=== PATIENT | female | born 1965 | race Two or more races ===

== ENCOUNTER 2025-01-28 03:13 | Inpatient (IN) | payer SELFPAY ==
[~2025-01-28] VITALS: Ht 165.1 cm; Wt 95.0 kg
--- NOTE | 2025-01-28 04:06 | ED.PDOC ---
History of Present Illness HPI Comments 59 year old female presents to the ED with a chief complaint of abdominal pain onset 4 days. Patient states she began experiencing LT flank pain pain 4 days ago, this morning around 01:00, she began experiencing chills, nausea, diarrhea, back pain, noticed pain worsened, came to ED. Currently rates pain 01/08. Denies fever, vomiting, hematemesis,dysuria, hematuria, chest pain, shortness of breath, melena, blood in stool, dizziness, headache, blurred vision. No other symptoms or modifying factors present at this time. REVIEW OF SYSTEMS: General: chills. No fever, or fatigue HEENT: No sore throat, no earache, no congestion, no neck pain. Cardiac: No chest pain. No palpitations. Lungs: No shortness of breath, no cough. GI: nausea. LT flank pain. diarrhea. no vomiting. : No dysuria, frequency, or urgency. No hematuria. Musculoskeletal: back pain. no joint swelling, no extremity edema. Skin: No rash, no itching. Neuro: No headache, no dizziness, no weakness (And as sated in HPI) PHYSICAL EXAM: General: Awake, alert and oriented. No acute distress. Skin: Skin in warm, dry and intact. Appropriate color for ethnicity. HEENT: The head is normocephalic and atraumatic. Conjunctivae are clear without exudates or hemorrhage. Sclera is non-icteric. Eyelids are normal in appearance without swelling or lesions. Oral mucosa is pink and moist Neck: The neck is supple with normal range of motion. No JVD. Cardiac: Heart rate and rhythm are normal. No murmurs, gallops, or rubs are auscultated. Respiratory: No signs of respiratory distress. Lung sounds are clear in all lobes bilaterally without rales, rhonchi, or wheezes. Abdominal: LT flank tenderness. Extremities: Upper and lower extremities are atraumatic in appearance without deformity or edema. Neurological: The patient is awake, alert and oriented to person, place, and time with normal speech. Speech is clear. There is no facial asymmetry. Psychiatric: Appropriate mood and affect. Good judgement and insight. Chief Complaint: Abdominal Pain Time Seen by MD: 03:55 Reviewed Notes: Medications, Allergies Allergies: Coded Allergies: NO KNOWN ALLERGIES (Unverified , 01/28/25) Information Source: Patient, Spouse Mode of Arrival: Ambulatory Severity: Moderate Timing: Days Duration: Since onset Prehospital treatment: None Past Medical History PAST MEDICAL HISTORY: Denies Surgical History: Denies all surgeries CIRCUS PERFORMER History: No Pertinent CIRCUS PERFORMER History Family History Family History: Reviewed,noncontributory to illness, No family hx of Cancer, No family hx of DM, No family hx of Heart vinod, No family hx of HTN, No family hx ofKidney vinod, No family hx of Liver vinod, No family hx of Lung vinod, No family hx of Stroke Social History Smoker: Non-Smoker Alcohol: Denies ETOH Use Drugs: Denies Drug Use Lives In: Home Was a procedure done? Was a procedure done?: No X-Ray, Labs, Meds, VS Vital Signs Date Time Temp Pulse Resp B/P (MAP) Pulse Ox O2 Delivery O2 Flow Rate FiO2 01/28/25 03:15 97.6 60 18 134/83 97 97.6 Lab Test 01/28/25 04:15 Range/Units White Blood Count 7.1 4.4-10.8 10^3/uL Red Blood Count 5.57 H 4.0-5.20 10^6/uL Hemoglobin 15.0 12.2-16.2 g/dL Hematocrit 44.8 36.0-46.0 % Mean Corpuscular Volume 80.6 80.0-100.0 fL Mean Corpuscular Hemoglobin 27.0 L 28.0-32.0 pg Mean Corpuscular Hemoglobin Concent 33.4 32.0-36.0 g/dL Red Cell Distribution Width 14.7 H 11.8-14.3 % Platelet Count 297 140-450 10^3/uL Mean Platelet Volume 8.8 6.9-10.8 fL Neutrophils (%) (Auto) 47.1 37.0-80.0 % Lymphocytes (%) (Auto) 37.6 10.0-50.0 % Monocytes (%) (Auto) 9.7 0.0-12.0 % Eosinophils (%) (Auto) 4.0 0.0-7.0 % Basophils (%) (Auto) 1.6 0.0-2.0 % Neutrophils # (Auto) 3.3 1.6-8.6 10 ^3/uL Lymphocytes # (Auto) 2.7 0.4-5.4 10 ^3/uL Monocytes # (Auto) 0.7 0-1.3 10 ^3/uL Eosinophils # (Auto) 0.3 0-0.8 10 ^3/uL Basophils # (Auto) 0.1 0-0.2 10 ^3/uL Nucleated Red Blood Cells 0.1 % Sodium Level 141 136-145 mmol/L Potassium Level 4.0 3.5-5.1 mmol/L Chloride Level 106 98-107 mmol/L Carbon Dioxide Level 28 20-31 mmol/L Anion Gap 7 5-15 Blood Urea Nitrogen 9 9-23 mg/dL Creatinine 0.73 0.550-1.02 mg/dL Glomerular Filtration Rate Calc 95 >90 mL/min BUN/Creatinine Ratio 12.3 10.0-20.0 Serum Glucose 111 H 74-106 mg/dL Calcium Level 9.3 8.7-10.4 mg/dL Current Medications Medications (Trade) Dose Ordered Sig/Justa Route Start Time Stop Time Status Last Admin Ketorolac Tromethamine (Toradol Injection) 30 mg ONCE ONCE IM 01/28/25 04:15 01/28/25 04:16 DC 01/28/25 05:05 Acetaminophen (Tylenol Tablet) 650 mg ONCE ONCE PO 01/28/25 04:15 01/28/25 04:16 DC 01/28/25 05:04 Time of 1ST Reevaluation: 04:25 Reevaluation 1ST: Unchanged Patient Education/Counseling: Need For Follow Up Family Education/Counseling: Need For Follow Up SEPSIS Sepsis Screen Date sepsis recognized/suspect: Jan 28, 2025 Time Sepsis recognized/suspect: 318 Recent Procedure: No On Antibiotic Therapy: No Respiratory Rate >20: No Heart Rate >90: No Temp<36 C (96.8 F) or >38.3 C: No SBP <90 or MAP <65 mmHG: No New Acute Mental Status Change: No Is the patient on CPAP, BIPAP,: No Physician Orders Urinalysis (01/28/25 04:06) Ct Ab Pel Wo Con-No Oral Or Iv (01/28/25 04:06) Vital Signs Date Time Temp Pulse Resp B/P (MAP) Pulse Ox O2 Delivery O2 Flow Rate FiO2 01/28/25 03:15 97.6 60 18 134/83 97 97.6 Laboratory Tests Test 01/28/25 04:15 White Blood Count 7.1 10^3/uL (4.4-10.8) Medications Medications Dose Ordered Sig/Justa Route Start Time Stop Time Status Last Admin Dose Admin Acetaminophen 650 mg ONCE ONCE PO 01/28/25 04:15 01/28/25 04:16 DC 01/28/25 05:04 Ketorolac Tromethamine 30 mg ONCE ONCE IM 01/28/25 04:15 01/28/25 04:16 DC 01/28/25 05:05 Departure 1 Departure Time of Disposition: 05:34 Impression: Primary Impression: Abdominal pain Additional Impression: Hepatomegaly Disposition: ADMITTED INPATIENT Condition: Stable Comments Patient continues reporting 11/08 abdominal pain. Patient was offered admission for further treatment, observation and evaluation versus discharge home with outpatient follow up. Patient is concerned that she does not have a PCP at this time to follow up with, she has continued to be in severe pain. Patient admitted to hospitalist service for further treatment, evaluation and monitoring. Urinalysis pending. Critical Care Note Critical Care Time?: No Stability Stability form required: No Heart Score Heart Score: Heart Score Response (Comments) Value History N/A 0 EKG N/A 0 Age N/A 0 Risk Factors N/A 0 Troponin N/A 0 Total 0 I personally scribed for JOSELITO JOHNSON MD ([email or web address]) on 01/28/25 at 04:06. Electronically submitted by Olga Pederson ([email or web address]). JOSELITO JOHNSON MD Jan 28, 2025 04:06
[2025-01-28 04:45] LABS: Hematocrit 44.8 % (36.0-46.0); Hemoglobin 15.0 g/dL (12.2-16.2); Mean Corpuscular Hemoglobin 27.0 pg (28.0-32.0); Mean Corpuscular Volume 80.6 fL (80.0-100.0); Nucleated Red Blood Cells % 0.1 %
[2025-01-28 04:52] LABS: Chloride 106 mmol/L (98-107); Potassium 4.0 mmol/L (3.5-5.1); Sodium 141 mmol/L (136-145)
[2025-01-28 04:53] LABS: Anion Gap 7 (5-15); Calcium 9.3 mg/dL (8.7-10.4); Carbon Dioxide 28 mmol/L (20-31)
[2025-01-28 04:58] LABS: BUN/Creatinine Ratio 12.3 (10.0-20.0)
[2025-01-28] MEDS: ACETAMINOPHEN 325 MG TAB PO ONE (05:04)
[2025-01-28] MEDS: KETOROLAC TROMETH 30 MG/ML 1ML VIAL IM ONE (05:05)
[2025-01-28 05:17] LABS: Blood Urea Nitrogen 9 mg/dL (9-23); Glucose 111 mg/dL (74-106)
--- NOTE | 2025-01-28 05:25 | DVH ---
Exam: CT CT AB PEL WO CON-NO ORAL OR IV History: L flank pain Comparison Study: None Technique: Multidetector spiral CT of the abdomen was performed from lung bases to pubic symphysis. I maging was performed without IV contrast. Axial, coronal and sagittal multiplanar reformats were obta ined from the axial data set by the technologist. Radiation Dose : 1. Abdomen/Pelvis: CTDIvol 16.64 mGy, DLP 908.22 mGy*cm. Findings: Evaluation of solid organs is limited due to lack of intravenous contrast use. Lung Bases: No acute or significant lung base finding. Normal heart size. No pleural or pericardial effusion. Liver: Hepatomegaly, 17.2 cm craniocaudal. Gallbladder and Biliary Tree: Unremarkable Spleen: Unremarkable Pancreas: The pancreas is grossly normal in appearance. Adrenal Glands: Unremarkable Kidneys: Kidneys are grossly normal without calculi or hydronephrosis. Bladder: Grossly unremarkable for degree of distention. Bowel: The stomach is grossly normal in appearance. Diverticulosis. Normal appendix is visualized in the right lower quadrant without findings of appendicitis. Ascites: Absent Lymphadenopathy: No mesenteric, retroperitoneal or periportal lymphadenopathy. Abdominal Wall and Mesentery: Small fat containing umbilical hernia. Vasculature: The visualized abdominal aorta is normal in size and caliber. Evaluation of abdominal a nd pelvic vessels is limited due to lack of intravenous contrast. Pelvic Organs: Unremarkable Musculoskeletal: No aggressive focal bony lesions, acute fractures or dislocation. Degenerative landry es of the spine. IMPRESSION: No acute abdominal or pelvic findings. Radiation optimization: All CT scans at this facility use at least one of these dose optimization selam hniques: automated exposure control mA and/or kV adjustment per patient size (includes targeted exam s where dose is matched to clinical indication) or iterative reconstruction.
[2025-01-28 06:32] VITALS: PULSE 58; RESP 20; O2SAT 100
[2025-01-28] MEDS: MORPHINE SULFATE INJ 2 MG/ml SYRG IV ONE (06:58)
[2025-01-28] MEDS: SODIUM CHLORIDE 0.9% 1,000 ML IV ONE (06:59)
[2025-01-28] MEDS: ONDANSETRON HCL 4 MG/2 ML VIAL IV ONE (06:59)
[2025-01-28] MEDS ORDERED: LEVO125T7 PO (07:03)
[2025-01-28] MEDS ORDERED: ACETAMINOPHEN 325 MG TAB PO PRN (07:15)
[2025-01-28] MEDS ORDERED: HYDROcodone-ACET 5/325MG TAB PO PRN (07:15)
[2025-01-28] MEDS ORDERED: MORPHINE SULFATE INJ 2 MG/ml SYRG IV PRN (07:15)
[2025-01-28] MEDS ORDERED: ONDANSETRON HCL 4 MG/2 ML VIAL IV PRN (07:15)
--- NOTE | 2025-01-28 07:36 | DVHHP2 ---
History of Present Illness Reason for Visit: Intractable abdominal pain History of Present Illness Purnima Kahn is a 59-year-old female with past medical history of hypothyroidism who presents to the ED with abdominal pain that started Saturday, 11/08 sharp and constant. Patient reports that she also had 2 episodes of diarrhea that started today. She also reports her last bowel movement for the diarrhea was yesterday which was normal. Patient reports that medications make the pain better. Patient's son Dylan at the bedside. Patient also reports that she ate a hamburger and shortly afterwards started experiencing this pain. Patient denies any recent trauma or injury, recent sick contacts, recent travel s, chest pain, shortness of breath, fever, chills, lightheadedness, weakness, dizziness, or urinary symptoms. Patient wants to leave against medical advice with risks and benefits discussed. She understands and still wishing to leave against medical advice. Patient's son also reports that she does not have a primary care physician, but has been trying to establish one. Endocrine: Hypothyroidism Past Surgical History: None Family History: None Smoke: No ALCOHOL: none Drugs: None Lives: with Family Domestic Violence: Neg Review of Systems Gastrointestinal: Abdominal Pain Allergies: Coded Allergies: NO KNOWN ALLERGIES (Unverified , 01/28/25) Exam Vital Signs Vital Signs Date Time Temp Pulse Resp B/P (MAP) Pulse Ox O2 Delivery O2 Flow Rate FiO2 01/28/25 06:58 64 20 130/65 01/28/25 06:32 100 Room Air* 0 21 01/28/25 06:32 98.1 98.1 General Appearance: Alert, Oriented X3, Cooperative, No acute distress HEENT: Atraumatic, PERRLA, EOMI, Mucous membr. moist/pink Respiratory: Clear to auscultation, Normal air movement Cardiovascular: Normal S1, Normal S2, No murmurs Extremities: No clubbing, No cyanosis, No edema, Normal pulses Skin: No significant lesion Neuro: Normal speech, Strength at 5/5 X4 ext, Normal tone, Sensation intact Psych/Mental Status: Mental status NL, Mood NL Labs/Xrays Labs Test 01/28/25 04:15 Range/Units White Blood Count 7.1 4.4-10.8 10^3/uL Red Blood Count 5.57 H 4.0-5.20 10^6/uL Hemoglobin 15.0 12.2-16.2 g/dL Hematocrit 44.8 36.0-46.0 % Mean Corpuscular Volume 80.6 80.0-100.0 fL Mean Corpuscular Hemoglobin 27.0 L 28.0-32.0 pg Mean Corpuscular Hemoglobin Concent 33.4 32.0-36.0 g/dL Red Cell Distribution Width 14.7 H 11.8-14.3 % Platelet Count 297 140-450 10^3/uL Mean Platelet Volume 8.8 6.9-10.8 fL Neutrophils (%) (Auto) 47.1 37.0-80.0 % Lymphocytes (%) (Auto) 37.6 10.0-50.0 % Monocytes (%) (Auto) 9.7 0.0-12.0 % Eosinophils (%) (Auto) 4.0 0.0-7.0 % Basophils (%) (Auto) 1.6 0.0-2.0 % Neutrophils # (Auto) 3.3 1.6-8.6 10 ^3/uL Lymphocytes # (Auto) 2.7 0.4-5.4 10 ^3/uL Monocytes # (Auto) 0.7 0-1.3 10 ^3/uL Eosinophils # (Auto) 0.3 0-0.8 10 ^3/uL Basophils # (Auto) 0.1 0-0.2 10 ^3/uL Nucleated Red Blood Cells 0.1 % Sodium Level 141 136-145 mmol/L Potassium Level 4.0 3.5-5.1 mmol/L Chloride Level 106 98-107 mmol/L Carbon Dioxide Level 28 20-31 mmol/L Anion Gap 7 5-15 Blood Urea Nitrogen 9 9-23 mg/dL Creatinine 0.73 0.550-1.02 mg/dL Glomerular Filtration Rate Calc 95 >90 mL/min BUN/Creatinine Ratio 12.3 10.0-20.0 Serum Glucose 111 H 74-106 mg/dL Calcium Level 9.3 8.7-10.4 mg/dL Exam: CT CT AB PEL WO CON-NO ORAL OR IV History: L flank pain Comparison Study: None Technique: Multidetector spiral CT of the abdomen was performed from lung bases to pubic symphysis. Imaging was performed without IV contrast. Axial, coronal and sagittal multiplanar reformats were obtained from the axial data set by the technologist. Radiation Dose : 1. Abdomen/Pelvis: CTDIvol 16.64 mGy, DLP 908.22 mGy*cm. Findings: Evaluation of solid organs is limited due to lack of intravenous contrast use. Lung Bases: No acute or significant lung base finding. Normal heart size. No pleural or pericardial effusion. Liver: Hepatomegaly, 17.2 cm craniocaudal. Gallbladder and Biliary Tree: Unremarkable Spleen: Unremarkable Pancreas: The pancreas is grossly normal in appearance. Adrenal Glands: Unremarkable Kidneys: Kidneys are grossly normal without calculi or hydronephrosis. Bladder: Grossly unremarkable for degree of distention. Bowel: The stomach is grossly normal in appearance. Diverticulosis. Normal appendix is visualized in the right lower quadrant without findings of appendicitis. Ascites: Absent Lymphadenopathy: No mesenteric, retroperitoneal or periportal lymphadenopathy. Abdominal Wall and Mesentery: Small fat containing umbilical hernia. Vasculature: The visualized abdominal aorta is normal in size and caliber. Evaluation of abdominal and pelvic vessels is limited due to lack of intravenous contrast. Pelvic Organs: Unremarkable Musculoskeletal: No aggressive focal bony lesions, acute fractures or dislocation. Degenerative changes of the spine. IMPRESSION: No acute abdominal or pelvic findings. SEPSIS Sepsis Screen Date sepsis recognized/suspect: Jan 28, 2025 Time Sepsis recognized/suspect: 634 Recent Procedure: No On Antibiotic Therapy: No Respiratory Rate >20: No Heart Rate >90: No Temp<36 C (96.8 F) or >38.3 C: No SBP <90 or MAP <65 mmHG: No New Acute Mental Status Change: No Is the patient on CPAP, BIPAP,: No Physician Orders Urinalysis (01/28/25 04:06) Ct Ab Pel Wo Con-No Oral Or Iv (01/28/25 04:06) Vital Signs Date Time Temp Pulse Resp B/P (MAP) Pulse Ox O2 Delivery O2 Flow Rate FiO2 01/28/25 06:58 64 20 130/65 01/28/25 06:32 58 20 100 Room Air* 0 21 01/28/25 06:32 98.1 58 20 129/57 (81) 100 98.1 01/28/25 03:15 97.6 60 18 134/83 97 97.6 Laboratory Tests Test 01/28/25 04:15 White Blood Count 7.1 10^3/uL (4.4-10.8) Medications Medications Dose Ordered Sig/Justa Route Start Time Stop Time Status Last Admin Dose Admin Acetaminophen 650 mg ONCE ONCE PO 01/28/25 04:15 01/28/25 04:16 DC 01/28/25 05:04 650 MG Ketorolac Tromethamine 30 mg ONCE ONCE IM 01/28/25 04:15 01/28/25 04:16 DC 01/28/25 05:05 30 MG Morphine Sulfate 2 mg ONCE ONCE IV 01/28/25 05:45 01/28/25 05:46 DC 01/28/25 06:58 2 MG Assessment/Plan Assessment/Plan Assessment Intractable abdominal pain unrelieved with p.o. medications Obesity History of hypothyroidism Plan Admit to med surge Antiemetics Pain management CT abdomen and pelvis noted UA UDS Lactic Influenza test COVID test Diet Home medications reconciled DVT prophylaxis-SCDs PUD prophylaxis-not indicated history of GERD or GI bleed Discussed plan of care with patient and nurse Counseled patient on lifestyle modifications, diet, and exercise [id number] Preventive counseling healthy eating habits, physical activity, and regular checkups Patient left against medical advice, explained risks and benefits with her and still insisted on leaving against medical advice Sudden Dylan at the bedside. Plan discussed with: Patient, Son Date of Service: Jan 28, 2025 Billing Provider: BRINA MURO Common Visit Codes: [id number] INP/OBS CARE (HIGH) Secondary Visit Codes: [id number] COUNSELING IND BRINA MURO Jan 28, 2025 07:36
[2025-01-28 08:00] VITALS: BP 114/61; PULSE 62; RESP 17; TEMP 97.7
[2025-01-28 09:01] VITALS: O2SAT 99
[2025-01-28] MEDS ORDERED: PATIENTS OWN MEDICATION (Levothyroxine Sodium 1 TAB) PO SCH (10:00)
[2025-01-29] MEDS ORDERED: LEVOTHYROXINE SODIUM 100 MCG TAB PO SCH (06:00)
[2025-01-29] MEDS ORDERED: LEVOTHYROXINE SODIUM 25 MCG TAB PO SCH (06:00)
== END 2025-01-28 09:00 | disposition left against medical advice (07) | DRG 392 ==
LOC: ER 03:13 → OVERFLOW 07:03
DX: R10.9 Unspecified abdominal pain (principal); E03.9 Hypothyroidism, unspecified; E66.9 Obesity, unspecified; Z53.29 Procedure and treatment not carried out because of patient's decision for other reasons; Z68.34 Body mass index [BMI] 34.0-34.9, adult; Z79.899 Other long term (current) drug therapy
CPT/HCPCS: 36415; 74176; 80048; 83605; 85025; 96361; 96372; 96374; 96375; G0378; J1885; J2405